=== PATIENT | female | born 1995 | race Caucasian/White ===

== ENCOUNTER 2016-10-15 22:13 | Observation (INO) | payer BC ==
[2016-10-15] MEDS ORDERED: cefTRIAXone 1,000 MG in Sodium Chloride 0.9% 50 ML IV ONE (23:44)
[2016-10-15] MEDS ORDERED: cefTRIAXone 1 GM in Premix Bag 1 BAG IV ONE (23:45)
[2016-10-15] MEDS ORDERED: Lactated Ringers 1,000 ML IV ONE (23:45)
[2016-10-16 01:32] LABS: CHLORIDE,CL 103 mmol/L (98-110); SODIUM,NA 134 mmol/L (136-146)
[2016-10-16] MEDS ORDERED: Methylergonovine 0.2 MG/1 ML Amp IM PRN (01:57)
[2016-10-16] MEDS ORDERED: Lidocaine 1% 50 ML MDV INJECT PRN (01:57)
[2016-10-16] MEDS ORDERED: Sodium Chloride 0.9% 2.5 ML Syringe FLUSH PRN ×2 (01:57→02:04)
[2016-10-16] MEDS ORDERED: Nalbuphine 10 MG/1 ML Vial IVPUSH PRN (01:57)
[2016-10-16] MEDS ORDERED: Sodium Chloride 0.9% 10 ML Syringe FLUSH PRN ×2 (01:57→02:04)
[2016-10-16] MEDS ORDERED: Carboprost Tromethamine 250 MCG/1 ML Amp IM PRN (01:57)
[2016-10-16] MEDS ORDERED: Misoprostol 200 MCG Tab PO PRN (01:57)
[2016-10-16] MEDS ORDERED: Water For Irrigation,Sterile 1,000 ML Container IRR PRN (01:57)
[2016-10-16] MEDS ORDERED: Butorphanol 1 MG/ML SDV IVPUSH PRN (01:57)
[2016-10-16] MEDS ORDERED: Lactated Ringers 1,000 ML IV SCH (02:00)
[2016-10-16] MEDS ORDERED: Oxytocin/Lactated Ringers 30 UNIT/500 ML BAG IV SCH (02:00)
[2016-10-16] MEDS ORDERED: Calcium Gluconate 10% 1 GM/10 ML SDV IV PRN (02:04)
[2016-10-16] MEDS ORDERED: Magnesium Sulfate/Water 2 GM in Premix Bag 1 BAG IV ONE (02:06)
[2016-10-16] MEDS ORDERED: MAGNESIUM SULFATE IV SCH (02:15)
[2016-10-16] MEDS ORDERED: [UNRECOGNIZED DRUG - OTHER] IV SCH (02:15)
[2016-10-16] MEDS ORDERED: Magnesium Sulfate/Water 100 ML ONE (02:15)
[2016-10-16] MEDS ORDERED: Magnesium Sulfate/Water 4 GM in Premix Bag 1 BAG IV ONE (02:20)
[2016-10-16] MEDS ORDERED: Magnesium Sulfate/Water 40 GM/1,000 ML BAG IV SCH (02:30)
[2016-10-16] MEDS ORDERED: Ampicillin 2 GM in Sodium Chloride 0.9% 100 ML IV SCH (02:30)
[2016-10-16] MEDS ORDERED: Calcium Gluconate 10% 1 GM/10 ML SDV IVPUSH ONE (02:49)
--- NOTE | 2016-10-16 04:11 | HP ---
DATE OF : 1995 PRIMARY CARE PHYSICIAN: None PCP CHIEF COMPLAINT: Right upper quadrant pain and dark urine. HISTORY: This is a 21-year-old female, G2, P1-0-0-1. She is currently 36 and 3/7th weeks' gestation with an EDC of 11/10/2016 based on an 18-week ultrasound. She has had to this point uncomplicated care. She presents with complaint of dark urine wishing to rule out a urinary tract infection. However, over the past six days, she reports right upper quadrant pain that has been worsening in intensity. Her urine has been dark. She denies any dysuria or foul odor to the urine. She denies headache or visual changes. She has swelling in her lower extremities, but not her hands and her face. She has noticed itching and red rash on her abdomen. She reports positive movement. No vaginal bleeding. No regular contractions. Her blood type is O positive, rubella immune. She is group B strep positive. Ultrasound at 18 weeks' gestation showed a low-lying placenta, however on followup ultrasound, it was resolved. She also has a short interval between conceptions. PAST MEDICAL HISTORY: Significant for pyelonephritis with her prior and pyelonephritis as a child. She has a history of mood disorder; however, has not been on any medication. ALLERGY TO MEDICATION: She has no known drug allergies. PAST SURGICAL HISTORY: She has had no surgeries. OB HISTORY: In November of 2015, she delivered a 39 and 6/7th week live-born male, 7 pounds 13 ounces, vaginal delivery without any complications. SOCIAL HISTORY: She is engaged and sexually active. Denies use of alcohol or street drugs. She does smoke occasionally. 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 FAMILY HISTORY: Significant for maternal grandmother with diabetes. REVIEW OF SYSTEMS: HEENT: Negative for headache or visual changes. RESPIRATORY: Negative for shortness of breath. CARDIAC: Negative for chest pain. MUSCULOSKELETAL: Negative for musculoskeletal pain. GI: She has reported some diarrhea in the last few days. : She denies dysuria, but reports dark urine. No vaginal bleeding or abnormal discharge. DERMATOLOGIC: She reports some generalized pruritus with a red rash on her abdomen and some sores on her buttocks area. PHYSICAL EXAMINATION: VITAL SIGNS: Temperature is 98.3, blood pressure 142/92, respiratory rate is 18. heart tones are 130s, moderate variability with accelerations present. No decelerations, category I, contractions are less than 4 per hour. GENERAL: She is alert and oriented, in no acute distress. NECK: Supple without lymphadenopathy or thyromegaly. LUNGS: Clear bilaterally. CV: Regular rate without murmur. ABDOMEN: Soft, gravid. Fundal height is appropriate for gestational age. She is slightly tender in the epigastric region and quite tender in the right upper quadrant. The liver is just palpable at the costal margin. EXTREMITIES: 1+ edema bilaterally. Deep tendon reflexes are 3+ bilaterally with no clonus. VAGINAL: 3 cm, 50%, -2 station. LABORATORY STUDIES: Attached; however, specifically, platelet count is 26,000, uric acid is 7.1, AST is 222, ALT 312, LDH is 896. She has greater than 300 mg of protein in her urine. She has positive nitrites in her urine. She has a history of being group B strep positive. Ultrasound shows growth at the 6th percentile, current weight of 5 pounds 3 ounces (2340 g), cephalic presentation, normal amniotic fluid index. ASSESSMENT AND PLAN: A 36 and 3/7th weeks intrauterine , severe preeclampsia, HELLP syndrome. Magnesium seizure prophylaxis is initiated. She has received 1 g of Rocephin due to the initial diagnosis of UTI, but now however started on ampicillin due to being group B strep positive. Due to her markedly low platelets, she needs access to platelets wherever she is delivered and I did call [facility] and spoke with Dr. Skye Cisneros. They do have some platelets available in [place] and she has accepted her in transfer. HEATHER / TATY /[id number]
--- NOTE | 2016-10-16 16:29 | US ---
EXAM DATE: 10/16/16 PATIENT'S AGE: 21 Patient: OLE JEAN-BAPTISTE Facility: [place], [place] Site . Site : 1995 Study: US OB Pelvis [id number]/10/2017 3:22:24 AM Ordering Physician: Junior Bird Final Report: INDICATION: The estimated weight TECHNIQUE: Limited obstetrical ultrasound COMPARISON: None available FINDINGS: A single live intrauterine gestation is seen in cephalic presentation. Estimated gestational age based on biparietal diameter, head circumference, abdominal circumference and femur length is 33 weeks and 6 days. There is cardiac activity with a heart rate of 141 BPM. Evaluation of anatomy is very limited. Estimated weight is 2340 grams +/-342 grams. The placenta is anterior. The cervix is not visualized. The amniotic fluid index measures 18.1 centimeters. Neither ovary is visualized. IMPRESSION.: A single live intrauterine gestation at 33 weeks 6 days by sonographic measurements. Estimated weight is 2340 grams +/-342 grams. Limited evaluation of anatomy. Dictated by Callum Kraft MD @ 10/16/2016 3:30:34 AM Dictated by: Callum Kraft MD @ 10/16/2016 03:30:40 (Electronic Signature) Report Signed by Proxy. ELISSA
== END 2016-10-16 03:51 ==
LOC: MW.OBCHECK 22:13 → MW.OB 22:19 → MW.OBCHECK 10-16 01:57 → MW.OB 10-16 01:57
PROVIDERS: ADMIT Obstetrics & Gynecology; ATTEND Obstetrics & Gynecology
DX: O14.23 HELLP syndrome (HELLP), third trimester (principal); O23.43 Unspecified infection of urinary tract in pregnancy, third trimester; B95.1 Streptococcus, group B, as the cause of diseases classified elsewhere; Z3A.36 36 weeks gestation of pregnancy
CPT/HCPCS: 36415; 59025; 76805; 80053; 81003; 83615; 84550; 85025; 86850; 86900; 86901; 87086; 96374; 96375; G0378; J0290; J0696; J3475; J7030; J7120; 96372

== ENCOUNTER 2018-01-31 21:55 | Emergency (ER) | payer BC ==
--- NOTE | 2018-01-31 22:29 | EDM.PDOC ---
ED HPI GENERAL MEDICAL PROBLEM - General Chief Complaint: Back Pain or Injury Stated Complaint: PAIN WHEN URINATING Time Seen by Provider: 01/31/18 22:25 - History of Present Illness INITIAL COMMENTS - FREE TEXT/NARRATIVE: HISTORY AND PHYSICAL: History of present illness: Patient's 22-year-old white female with a concern of low back pain and possible UTI patient denies fever chills nausea vomiting numbness weakness in concert potential bowel or bladder vaginal discharge or irregular bleeding. Review of systems: As per history of present illness and below otherwise all systems reviewed and negative. Past medical history: As per history of present illness and as reviewed below otherwise noncontributory. Surgical history: As per history of present illness and as reviewed below otherwise noncontributory. Social history: No reported history of drug or alcohol abuse. Family history: As per history of present illness and as reviewed below otherwise noncontributory. Physical exam: HEENT: Atraumatic, normocephalic, pupils reactive, negative for conjunctival pallor or scleral icterus, mucous membranes moist, throat clear, neck supple, nontender, trachea midline. Lungs: Clear to auscultation, breath sounds equal bilaterally, chest nontender. Heart: S1S2, regular, negative for clicks, rubs, or JVD. Abdomen: Soft, nondistended, nontender. Negative for masses or hepatosplenomegaly. Negative for costovertebral tenderness. Pelvis: Stable nontender. Genitourinary: Deferred. Rectal: Deferred. Extremities: Atraumatic, negative for cords or calf pain. Neurovascular unremarkable. Neuro: Awake, alert, oriented. Cranial nerves II through XII unremarkable. Cerebellum unremarkable. Motor and sensory unremarkable throughout. Exam nonfocal. Back: Patient has some mild paravertebral tenderness at the level lumbar spine no vertebral body point tenderness patients able stand on her toes back on her heels motor sensory deep tendon reflexes are normal Diagnostics: UA UCG urine culture and sensitivity Therapeutics: None Impression: #1 low back pain Definitive disposition and diagnosis as appropriate pending reevaluation and review of above. 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 ED EXAM, GENERAL - Physical Exam Exam: See Below (The dictation) Course - Vital Signs Last Recorded V/S: Last Vital Signs Temp 36.4 C 01/31/18 21:55 Pulse 75 01/31/18 21:55 Resp 18 01/31/18 21:55 BP 126/67 01/31/18 21:55 Pulse Ox 98 01/31/18 21:55 - Orders/Labs/Meds Orders: Active Orders 24 hr Category Date Time Status CULTURE URINE [RM] Stat Lab 01/31/18 22:29 Ordered HCG QUALITATIVE,URINE [URCHEM] Stat Lab 01/31/18 22:10 Ordered UA W/MICROSCOPIC [URIN] Stat Lab 01/31/18 22:10 Ordered Labs: Laboratory Tests 01/31/18 01/31/18 Range/Units 22:10 22:10 Urine Color YELLOW Urine Appearance SLT CLOUDY Urine pH 6.5 (5.0-8.0) Ur Specific [place] 1.025 (1.001-1.035) Urine Protein NEGATIVE (NEGATIVE) mg/dL Urine Glucose (UA) NEGATIVE (NEGATIVE) mg/dL Urine Ketones NEGATIVE (NEGATIVE) mg/dL Urine Occult Blood NEGATIVE (NEGATIVE) Urine Nitrite NEGATIVE (NEGATIVE) Urine Bilirubin NEGATIVE (NEGATIVE) Urine Urobilinogen 0.2 (<2.0) EU/dL Ur Leukocyte Esterase TRACE (NEGATIVE) Urine RBC 1-3 (0-2/HPF) Urine WBC 6-10 (0-5/HPF) Ur Epithelial Cells FEW (NONE-FEW) Amorphous Sediment MODERATE (NEGATIVE) Urine Bacteria FEW (NEGATIVE) Urine HCG, Qual NEGATIVE (NEGATIVE) Departure - Departure Time of Disposition: 22:28 Disposition: Home, Self-Care 01 Condition: Good Clinical Impression: Encounter for medical screening examination, Back pain, UTI (urinary tract infection) - Discharge Information *PRESCRIPTION DRUG MONITORING PROGRAM REVIEWED*: Not Applicable *COPY OF PRESCRIPTION DRUG MONITORING REPORT IN PATIENT MARK: Not Applicable Instructions: Back Pain, Adult Referrals: Trell Harper MD [Primary Care Provider] - Forms: ED Department Discharge Additional Instructions: The following information is given to patients seen in the emergency department who are being discharged to home. This information is to outline your options for follow-up care. We provide all patients seen in our emergency department with a follow-up referral. The need for follow-up, as well as the timing and circumstances, are variable depending upon the specifics of your emergency department visit. If you don't have a primary care physician on staff, we will provide you with a referral. We always advise you to contact your personal physician following an emergency department visit to inform them of the circumstance of the visit and for follow-up with them and/or the need for any referrals to a consulting specialist. The emergency department will also refer you to a specialist when appropriate. This referral assures that you have the opportunity for followup care with a specialist. All of these measure are taken in an effort to provide you with optimal care, which includes your followup. Under all circumstances we always encourage you to contact your private physician who remains a resource for coordinating your care. When calling for followup care, please make the office aware that this follow-up is from your recent emergency room visit. If for any reason you are refused follow-up, please contact the emergency department at and asked to speak to the emergency department charge nurse. Cipro as prescribed push fluids follow primary medical doctor as needed as discussed return as needed as discussed - My Orders Last 24 Hours: My Active Orders 01/31/18 22:10 HCG QUALITATIVE,URINE [URCHEM] Stat UA W/MICROSCOPIC [URIN] Stat 01/31/18 22:29 CULTURE URINE [RM] Stat - Assessment/Plan Last 24 Hours: My Active Orders 01/31/18 22:10 HCG QUALITATIVE,URINE [URCHEM] Stat UA W/MICROSCOPIC [URIN] Stat 01/31/18 22:29 CULTURE URINE [RM] Stat
[2018-01-31 22:38] VITALS: BP 126/67
== END 2018-01-31 23:26 | disposition home or self-care (01) ==
LOC: MW.ED 21:55
DX: N39.0 Urinary tract infection, site not specified (principal); M54.5 Low back pain
CPT/HCPCS: 81001; 81025; 87086; 99283

== ENCOUNTER 2018-09-21 17:32 | Emergency (ER) | payer BC ==
--- NOTE | 2018-09-21 17:46 | EDM.PDOC ---
ED HPI GENERAL MEDICAL PROBLEM - General Stated Complaint: UTI AND COUGH Time Seen by Provider: 09/21/18 17:46 Source of Information: Reports: Patient History Limitations: Reports: No Limitations - History of Present Illness INITIAL COMMENTS - FREE TEXT/NARRATIVE: HISTORY AND PHYSICAL: History of present illness: Patient is a 23-year-old female who presents to the emergency room today with complaints of bilateral flank pain, suprapubic discomfort and dysuria at the end of urination. She states these symptoms have been dull but noticeable over the past 4 weeks. Patient denies any fever, chills, headache, change in vision, syncope or near syncope. Denies any chest pain, back pain, shortness of breath or cough. Denies any abdominal pain, nausea, vomiting, diarrhea, constipation. Has not noted any blood in urine or stool. Denies any chance of . Patient has been eating and drinking appropriately. Review of systems: As per history of present illness and below otherwise all systems reviewed and negative. Past medical history: As per history of present illness and as reviewed below otherwise noncontributory. Surgical history: As per history of present illness and as reviewed below otherwise noncontributory. Social history: See social history for further information Family history: As per history of present illness and as reviewed below otherwise noncontributory. Physical exam: General: Well-developed and well-nourished 23-year-old female. Alert and oriented. Nontoxic appearing and in no acute distress. HEENT: Atraumatic, normocephalic, pupils equal and reactive bilaterally, negative for conjunctival pallor or scleral icterus, mucous membranes moist, TMs normal bilaterally, throat clear, neck supple, nontender, trachea midline. No drooling or trismus noted. No meningeal signs. No hot potato voice noted. Lungs: Clear to auscultation, breath sounds equal bilaterally, chest nontender. Heart: S1S2, regular rate and rhythm without overt murmur Abdomen: Soft, nondistended, nontender. Negative for masses or hepatosplenomegaly. Negative for costovertebral tenderness. Pelvis: Stable, mild suprapubic tenderness with palpation. Genitourinary: Deferred. Rectal: Deferred. Skin: Intact, warm, dry. No lesions or rashes noted. Extremities: Atraumatic, moves all extremities per self with difficulty or deficits, negative for cords or calf pain. Neurovascular unremarkable. Neuro: Awake, alert, oriented. Cranial nerves II through XII unremarkable. Cerebellum unremarkable. Motor and sensory unremarkable throughout. Exam nonfocal. Notes: Patient does have a urinary tract infection. We'll place her on Macrobid a culture is pending. Chest x-ray shows no acute findings. We'll give her pro-air inhaler for symptomatic relief. Encouraged her to follow up with her primary care provider. Supportive care measures were reviewed and discussed. Voices understanding and is agreeable to plan of care. Denies any further questions or concerns at this time. Diagnostics: UA, HCGU, CXR Therapeutics: None Prescription: Macrobid Pro-air Impression: UTI Bronchitis Plan: 1. Take your antibiotic as prescribed. 2. Increase your oral fluids. 3. Follow-up with your primary care provider as we discussed. Return to the ED as needed and as discussed. Definitive disposition and diagnosis as appropriate pending reevaluation and review of above. 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 ED EXAM, RENAL/ - Physical Exam Exam: See Below (See dictation) Course - Vital Signs Last Recorded V/S: Last Vital Signs Temp 97.8 F 09/21/18 17:51 Pulse 85 09/21/18 17:51 Resp 18 09/21/18 17:51 BP 136/74 09/21/18 17:51 Pulse Ox 98 09/21/18 17:51 - Orders/Labs/Meds Orders: Active Orders 24 hr Category Date Time Status Chest 2V [CR] Stat Exams 09/21/18 17:42 Taken UA RFX ERIBERTO AND CULT IF INDIC [URIN] Stat Lab 09/21/18 18:29 Received Labs: Laboratory Tests 09/21/18 09/21/18 Range/Units 18:29 18:29 Urine Color YELLOW Urine Appearance CLEAR Urine pH 6.5 (5.0-8.0) Ur Specific [place] 1.010 (1.001-1.035) Urine Protein NEGATIVE (NEGATIVE) mg/dL Urine Glucose (UA) NEGATIVE (NEGATIVE) mg/dL Urine Ketones NEGATIVE (NEGATIVE) mg/dL Urine Occult Blood MODERATE H (NEGATIVE) Urine Nitrite NEGATIVE (NEGATIVE) Urine Bilirubin NEGATIVE (NEGATIVE) Urine Urobilinogen 0.2 (<2.0) EU/dL Ur Leukocyte Esterase LARGE H (NEGATIVE) Urine RBC 3-5 (0-2/HPF) Urine WBC 15-20 (0-5/HPF) Ur Epithelial Cells FEW (NONE-FEW) Urine Bacteria FEW (NEGATIVE) Urine HCG, Qual NEGATIVE (NEGATIVE) Departure - Departure Time of Disposition: 19:26 Disposition: Home, Self-Care 01 Clinical Impression: UTI, Urinary tract infectious disease, Bronchitis - Discharge Information Prescriptions: Albuterol Sulfate [Proair Hfa] 1 dose IH Q4HR #1 hfa.aer.ad Nitrofurantoin Weld/Macrocryst [Nitrofurantoin Weld-MCR] 100 mg PO BID 7 Days # 14 cap Instructions: Urinary Tract Infection, Adult, [id number] Referrals: Trell Harper MD [Primary Care Provider] - Additional Instructions: The following information is given to patients seen in the emergency department who are being discharged to home. This information is to outline your options for follow-up care. We provide all patients seen in our emergency department with a follow-up referral. The need for follow-up, as well as the timing and circumstances, are variable depending upon the specifics of your emergency department visit. If you don't have a primary care physician on staff, we will provide you with a referral. We always advise you to contact your personal physician following an emergency department visit to inform them of the circumstance of the visit and for follow-up with them and/or the need for any referrals to a consulting specialist. The emergency department will also refer you to a specialist when appropriate. This referral assures that you have the opportunity for follow-up care with a specialist. All of these measure are taken in an effort to provide you with optimal care, which includes your follow-up. Under all circumstances we always encourage you to contact your private physician who remains a resource for coordinating your care. When calling for follow-up care, please make the office aware that this follow-up is from your recent emergency room visit. If for any reason you are refused follow-up, please contact the [facility] Emergency Department at and asked to speak to the emergency department charge nurse. [facility] [address] [place] [id number] [place] [address] 1. Take your antibiotic as prescribed. 2. Increase your oral fluids. 3. Follow-up with your primary care provider as we discussed. Return to the ED as needed and as discussed. - My Orders Last 24 Hours: My Active Orders 09/21/18 17:42 Chest 2V [CR] Stat 09/21/18 18:29 UA RFX ERIBERTO AND CULT IF INDIC [URIN] Stat - Assessment/Plan Last 24 Hours: My Active Orders 09/21/18 17:42 Chest 2V [CR] Stat 09/21/18 18:29 UA RFX ERIBERTO AND CULT IF INDIC [URIN] Stat
[2018-09-21 19:34] VITALS: BP 105/75
--- NOTE | 2018-09-21 19:48 | CR ---
INDICATION: cough TECHNIQUE: Chest 2 views. COMPARISON: None. FINDINGS: Cardiovascular and mediastinum: Heart size and vasculature are normal in caliber and appearance. Mediastinum is within normal limits. Lungs and pleural spaces: Lungs are clear. No sign of infiltrate or mass. No sign of pleural effusion. No pneumothorax. Bones and soft tissues: No significant findings. IMPRESSION: Unremarkable chest. Dictated by: Blair Mueller MD @ 09/21/2018 19:47:16 (Electronically Signed)
== END 2018-09-21 19:33 | disposition home or self-care (01) ==
LOC: MW.ED 17:32
DX: N39.0 Urinary tract infection, site not specified (principal); J40 Bronchitis, not specified as acute or chronic; F41.9 Anxiety disorder, unspecified; F32.9 Major depressive disorder, single episode, unspecified; Z79.899 Other long term (current) drug therapy
CPT/HCPCS: 71046; 71046-26; 81001; 81025; 87086; 87088; 87186; 99283; 99284-25

== ENCOUNTER 2018-12-18 20:51 | Emergency (ER) | payer BC ==
[2018-12-18] MEDS ORDERED: Sodium Chloride 0.9% 1,000 ML IV ONE (20:57)
[2018-12-18] MEDS ORDERED: Ketorolac 30 MG/ML SDV IVPUSH ONE (21:08)
--- NOTE | 2018-12-18 21:08 | EDM.PDOC ---
ED HPI GENERAL MEDICAL PROBLEM - General Chief Complaint: Abdominal Pain Stated Complaint: GALLBLADDER PAIN Time Seen by Provider: 12/18/18 20:53 Source of Information: Reports: Patient History Limitations: Reports: No Limitations - History of Present Illness INITIAL COMMENTS - FREE TEXT/NARRATIVE: HISTORY AND PHYSICAL: History of present illness: Patient is a 23-year-old female who presents to the emergency room complaints of abdominal pain over the past 4-5 hours. She states last evening she had eaten some [employer] did have some slight abdominal upset and pain to her upper abdomen. States this resolved after a few hours. This afternoon she had some greasy food at approximately one hour afterward developed some epigastric/ upper abdominal pain. She describes this as an achy and intermittently sharp pain. Denies any nausea, vomiting or diarrhea. She is concerned that it is her gallbladder and she has had similar episodes in the past, associated with food. She states that she has had evaluation for this including lab work and ultrasound. She states that her gallbladder is "normal". Patient denies any fever, chills, headache, change in vision, syncope or near syncope. Denies any chest pain, back pain, shortness of breath or cough. Denies any nausea, vomiting, diarrhea, constipation or dysuria. Has not noted any blood in urine or stool. Patient has been eating and drinking appropriately. Review of systems: As per history of present illness and below otherwise all systems reviewed and negative. Past medical history: As per history of present illness and as reviewed below otherwise noncontributory. Surgical history: As per history of present illness and as reviewed below otherwise noncontributory. Social history: See social history for further information Family history: As per history of present illness and as reviewed below otherwise noncontributory. Physical exam: General: Well-developed and well-nourished 23-year-old female. Alert and oriented. Nontoxic appearing and in no acute distress. HEENT: Atraumatic, normocephalic, pupils equal and reactive bilaterally, negative for conjunctival pallor or scleral icterus, mucous membranes moist, trachea midline. No drooling or trismus noted. No meningeal signs. No hot potato voice noted. Lungs: Clear to auscultation, breath sounds equal bilaterally, chest nontender. Heart: S1S2, regular rate and rhythm without overt murmur Abdomen: Soft, nondistended, mild tenderness to the epigastric area Negative for masses or hepatosplenomegaly. Negative for costovertebral tenderness. Pelvis: Stable nontender. Genitourinary: Deferred. Rectal: Deferred. Skin: Intact, warm, dry. No lesions or rashes noted. Extremities: Atraumatic, moves all extremities per self without difficulty or deficits, negative for cords or calf pain. Neurovascular unremarkable. Neuro: Awake, alert, oriented. Cranial nerves II through XII unremarkable. Cerebellum unremarkable. Motor and sensory unremarkable throughout. Exam nonfocal. Notes: Lab work is unremarkable. Vital signs remained stable. X-ray shows no acute findings. Diagnostics were shared with the patient. Supportive care measures were reviewed and discussed. Voices understanding and is agreeable to plan of care. Denies any further questions or concerns at this time. Diagnostics: CBC, CMP, UA, urine , lipase Therapeutics: IV fluid, Toradol Prescription: Tramadol Impression: Abdominal pain, upper Plan: 1. Please use Tylenol and/or Ibuprofen as needed for pain and fever management. 2. Please continue to monitor your foods and possibly keep a food diary to see if there are any triggers that are causing her abdominal pain. 3. Encourage fluids to prevent dehydration. 4. Please follow up with your primary care provider. Return to the ED as needed as discussed. Definitive disposition and diagnosis as appropriate pending reevaluation and review of above. Abdomen Pain Score (Numeric/FACES): 5 - Related Data Allergies Allergy/AdvReac Type Severity Reaction Status Date / Time No Known Allergies Allergy Verified 12/18/18 21:01 Home Meds: Home Meds Albuterol Sulfate [Proair Hfa] 1 dose IH Q4HR #1 [email or web address] 09/21/18 [Rx] Citalopram Hydrobromide [Celexa] 40 mg PO DAILY 09/21/18 [History] Nitrofurantoin [place]/Macrocryst [Nitrofurantoin [place]-MCR] 100 mg PO BID 7 Days # 14 cap 09/21/18 [Rx] Past Medical History - Past Health History Medical/Surgical History: Denies Medical/Surgical History Genitourinary 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: Pyelonephritis [employer]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 ED EXAM, GI/ABD - Physical Exam Exam: See Below (See dictation) Course - Vital Signs Last Recorded V/S: Last Vital Signs Temp 96.7 F 12/18/18 22:52 Pulse 61 12/18/18 22:52 Resp 16 12/18/18 22:52 BP 104/71 12/18/18 22:52 Pulse Ox 99 12/18/18 22:52 - Orders/Labs/Meds Labs: Laboratory Tests 12/18/18 12/18/18 12/18/18 Range/Units 21:16 21:16 21:24 WBC 10.21 (4.0-11.0) K/uL RBC 4.49 (4.30-5.90) M/uL Hgb 13.2 (12.0-16.0) g/dL Hct 40.1 (36.0-46.0) % MCV 89.3 (80.0-98.0) fL MCH 29.4 (27.0-32.0) pg MCHC 32.9 (31.0-37.0) g/dL RDW Std Deviation 48.1 (28.0-62.0) fl RDW Coeff of Griselda 15 (11.0-15.0) % Plt Count 201 (150-400) K/uL MPV 10.60 (7.40-12.00) fL Neut % (Auto) 58.7 (48.0-80.0) % Lymph % (Auto) 31.0 (16.0-40.0) % [place] % (Auto) 6.4 (0.0-15.0) % Eos % (Auto) 3.4 (0.0-7.0) % Baso % (Auto) 0.5 (0.0-1.5) % Neut # (Auto) 6.0 H (1.4-5.7) K/uL Lymph # (Auto) 3.2 H (0.6-2.4) K/uL [place] # (Auto) 0.7 (0.0-0.8) K/uL Eos # (Auto) 0.4 (0.0-0.7) K/uL Baso # (Auto) 0.1 (0.0-0.1) K/uL Nucleated RBC % 0.0 /100WBC Nucleated RBCs # 0 K/uL Sodium (136-145) mmol/L Potassium (3.5-5.1) mmol/L Chloride (98-107) mmol/L Carbon Dioxide (21.0-32.0) mmol/L BUN (7.0-18.0) mg/dL Creatinine (0.6-1.0) mg/dL Est Cr Clr Drug Dosing mL/min Estimated GFR (MDRD) ml/min Glucose (74-106) mg/dL Calcium (8.5-10.1) mg/dL Total Bilirubin (0.2-1.0) mg/dL AST (15-37) IU/L ALT (14-63) IU/L Alkaline Phosphatase (46-116) U/L Total Protein (6.4-8.2) g/dL Albumin (3.4-5.0) g/dL Globulin (2.6-4.0) g/dL Albumin/Globulin Ratio (0.9-1.6) Lipase (73-393) U/L Urine Color YELLOW Urine Appearance CLEAR Urine pH 6.0 (5.0-8.0) Ur Specific [place] 1.020 (1.001-1.035) Urine Protein NEGATIVE (NEGATIVE) mg/dL Urine Glucose (UA) NEGATIVE (NEGATIVE) mg/dL Urine Ketones NEGATIVE (NEGATIVE) mg/dL Urine Occult Blood NEGATIVE (NEGATIVE) Urine Nitrite NEGATIVE (NEGATIVE) Urine Bilirubin NEGATIVE (NEGATIVE) Urine Urobilinogen 0.2 (<2.0) EU/dL Ur Leukocyte Esterase NEGATIVE (NEGATIVE) Urine HCG, Qual NEGATIVE (NEGATIVE) 12/18/18 Range/Units 21:24 WBC (4.0-11.0) K/uL RBC (4.30-5.90) M/uL Hgb (12.0-16.0) g/dL Hct (36.0-46.0) % MCV (80.0-98.0) fL MCH (27.0-32.0) pg MCHC (31.0-37.0) g/dL RDW Std Deviation (28.0-62.0) fl RDW Coeff of Griselda (11.0-15.0) % Plt Count (150-400) K/uL MPV (7.40-12.00) fL Neut % (Auto) (48.0-80.0) % Lymph % (Auto) (16.0-40.0) % [place] % (Auto) (0.0-15.0) % Eos % (Auto) (0.0-7.0) % Baso % (Auto) (0.0-1.5) % Neut # (Auto) (1.4-5.7) K/uL Lymph # (Auto) (0.6-2.4) K/uL [place] # (Auto) (0.0-0.8) K/uL Eos # (Auto) (0.0-0.7) K/uL Baso # (Auto) (0.0-0.1) K/uL Nucleated RBC % /100WBC Nucleated RBCs # K/uL Sodium 143 (136-145) mmol/L Potassium 4.0 (3.5-5.1) mmol/L Chloride 108 H (98-107) mmol/L Carbon Dioxide 25.9 (21.0-32.0) mmol/L BUN 11 (7.0-18.0) mg/dL Creatinine 0.7 (0.6-1.0) mg/dL Est Cr Clr Drug Dosing 102.51 mL/min Estimated GFR (MDRD) > 60.0 ml/min Glucose 86 (74-106) mg/dL Calcium 8.8 (8.5-10.1) mg/dL Total Bilirubin 0.2 (0.2-1.0) mg/dL AST 17 (15-37) IU/L ALT 28 (14-63) IU/L Alkaline Phosphatase 60 (46-116) U/L Total Protein 7.3 (6.4-8.2) g/dL Albumin 3.8 (3.4-5.0) g/dL Globulin 3.5 (2.6-4.0) g/dL Albumin/Globulin Ratio 1.1 (0.9-1.6) Lipase 96 (73-393) U/L Urine Color Urine Appearance Urine pH (5.0-8.0) Ur Specific [place] (1.001-1.035) Urine Protein (NEGATIVE) mg/dL Urine Glucose (UA) (NEGATIVE) mg/dL Urine Ketones (NEGATIVE) mg/dL Urine Occult Blood (NEGATIVE) Urine Nitrite (NEGATIVE) Urine Bilirubin (NEGATIVE) Urine Urobilinogen (<2.0) EU/dL Ur Leukocyte Esterase (NEGATIVE) Urine HCG, Qual (NEGATIVE) Meds: Medications Discontinued Medications Generic Name Dose Route Start Last Admin Trade Name Gurmeetq PRN Reason Stop Dose Admin Sodium Chloride 1,000 mls @ 999 mls/hr 12/18/18 20:57 12/18/18 21:30 Normal Saline IV 12/18/18 21:57 999 mls/hr STAT ONE Administration Ketorolac Tromethamine 30 mg 12/18/18 21:08 12/18/18 22:09 Toradol IVPUSH 12/18/18 21:09 Not Given ONETIME ONE Departure - Departure Time of Disposition: 23:27 Disposition: Home, Self-Care 01 Clinical Impression: Abdominal pain Qualifiers: Abdominal location: upper abdomen, unspecified Qualified Code(s): R10.10 - Upper abdominal pain, unspecified - Discharge Information Instructions: Abdominal Pain, Adult, [id number] Referrals: Trell Harper MD [Primary Care Provider] - Forms: ED Department Discharge Additional Instructions: The following information is given to patients seen in the emergency department who are being discharged to home. This information is to outline your options for follow-up care. We provide all patients seen in our emergency department with a follow-up referral. The need for follow-up, as well as the timing and circumstances, are variable depending upon the specifics of your emergency department visit. If you don't have a primary care physician on staff, we will provide you with a referral. We always advise you to contact your personal physician following an emergency department visit to inform them of the circumstance of the visit and for follow-up with them and/or the need for any referrals to a consulting specialist. The emergency department will also refer you to a specialist when appropriate. This referral assures that you have the opportunity for follow-up care with a specialist. All of these measure are taken in an effort to provide you with optimal care, which includes your follow-up. Under all circumstances we always encourage you to contact your private physician who remains a resource for coordinating your care. When calling for follow-up care, please make the office aware that this follow-up is from your recent emergency room visit. If for any reason you are refused follow-up, please contact the [facility] Emergency Department at and asked to speak to the emergency department charge nurse. [facility] [address] [place] [address] [address] 1. Please use Tylenol and/or Ibuprofen as needed for pain and fever management. 2. Please continue to monitor your foods and possibly keep a food diary to see if there are any triggers that are causing her abdominal pain. 3. Encourage fluids to prevent dehydration. 4. Please follow up with your primary care provider. Return to the ED as needed as discussed.
[2018-12-18 22:02] LABS: CHLORIDE,CL 108 mmol/L (98-107); SODIUM,NA 143 mmol/L (136-145)
--- NOTE | 2018-12-18 23:14 | CR ---
INDICATION: Abdominal pain TECHNIQUE: Chest and Abdominal radiograph 6 views COMPARISON: None FINDINGS: Moderate degradation of image quality noted due to body habitus. CHEST: Mediastinum: The mediastinum is normal in appearance. The heart silhouette is normal in size and morphology. Lung: Both lungs are unremarkable in appearance. No sign of pleural effusion seen. No pneumothorax is identified. ABDOMEN: Bowel: The bowel gas pattern is normal without evidence of bowel obstruction. Soft tissue: No evidence of pneumoperitoneum present. No suspicious calcifications noted. Bone: Unremarkable for age. IMPRESSION: 1. Unremarkable appearance of the chest and abdomen. Dictated by: Ramon Littlejohn MD @ 12/18/2018 23:13:58 (Electronically Signed)
[2018-12-18 23:43] VITALS: BP 121/76
== END 2018-12-18 23:40 | disposition home or self-care (01) ==
LOC: MW.ED 20:51
DX: R10.13 Epigastric pain (principal); F41.9 Anxiety disorder, unspecified; F32.9 Major depressive disorder, single episode, unspecified; Z79.899 Other long term (current) drug therapy
CPT/HCPCS: 74022; 80053; 81003; 81025; 83690; 85025; 96360; 99284; J7040; 99283

== ENCOUNTER 2019-09-05 02:07 | Emergency (ER) | payer BC ==
[2019-09-05] MEDS ORDERED: Ibuprofen 600 MG Tab PO ONE (02:36)
--- NOTE | 2019-09-05 03:05 | EDM.PDOC ---
ED [facility] GENERAL MEDICAL PROBLEM - General Chief Complaint: General Stated Complaint: RIB PAIN Time Seen by Provider: 09/05/19 02:35 Source of Information: Reports: Patient History Limitations: Reports: No Limitations - History of Present Illness INITIAL COMMENTS - FREE TEXT/NARRATIVE: Patient is a 24-year-old female with past medical history of help syndrome 3 years ago. Patient reports chief complaint of bilateral lower rib pain. Onset was while the patient was at a bonfire earlier this evening. Patient reports acute onset of pain. Pain is not improved at all. Nothing makes pain better or worse. Patient not take any medications prior to arrival. Patient reports that she did have a few drinks of alcohol. Patient denies any recent illnesses , fevers, chills, shortness of breath, sore throat. Patient has no prior history of recent travel no history of DVT or PE and is not currently take any oral contraceptives. Pmhx: Help syndrome Pshx: None Family Hx: noncontributory Smoking history? no Etoh use? none Drug use? none In addition to that documented in the HPI above, the additional ROS was obtained : Constitutional: Denies fevers or chills Eyes: Denies vision changes ENMT: Denies sore throat CV: Denies chest pain Resp: Denies SOB GI: Denies vomiting or diarrhea : Denies painful urination MSK: Denies recent trauma Skin: Denies new rashes Neuro: Denies new numbness or tingling or weakness Endocrine: Denies unexpected weight loss Heme: Denies bleeding disorders I have reviewed the triage vital signs Const: Well nourished, well developed, appears stated age Eyes: PERRL, no conjunctival injection HENT: NCAT, Neck supple without meningismus CV: RRR, Warm, well-perfused extremities RESP: CTAB, Unlabored respiratory effort GI: soft, non-tender, non-distended, no masses MSK: No gross deformities appreciated Skin: Warm, dry. No rashes Neuro: Alert, sql ssrs developer II-XII grossly intact. Sensation and motor function of extremities grossly intact. Psych: Appropriate mood and affect Assessment and plan: Patient is 24-year-old female presenting with acute onset of chest pain. Patient has normal EKG and normal x-ray. Differential including acute coronary syndrome and PE were considered however they seem unlikely. Patient is PERC negative and has no major ACS risk factors. Patient's chest pain improved after administration of Motrin. Patient is vitally stable and is well- appearing. Patient will be discharged home and instructed to follow-up with primary care. Given strict return precautions. All questions addressed and answered. Patient agrees with plan. 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: Musculoskeletal 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: None Neurological 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: None Psychiatric 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: Anxiety, Depression Endocrine/Metabolic 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: None Hematologic 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: None Oncologic (Cancer) 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: None Dermatologic 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: None - Infectious Disease History Infectious Disease 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: None - Past Surgical History Head Surgeries/Procedures: Reports: None GI Surgical 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: Cholecystectomy Female Surgical 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: None Social & Family History - Family History Family Medical History: Noncontributory - Tobacco Use Smoking Status *Q: Current Every Day Smoker Years of Tobacco use: 10 Packs/Tins Daily: 1 - Caffeine Use Caffeine Use: Reports: Coffee, Energy Drinks - Recreational Drug Use Recreational Drug Use: No ED ROS GENERAL - Review of Systems Review Of Systems: See Below ED EXAM, GENERAL - Physical Exam Exam: See Below Course - Vital Signs Last Recorded V/S: Last Vital Signs Temp 36.2 C 09/05/19 02:11 Pulse 90 09/05/19 02:11 Resp 18 09/05/19 02:11 BP 123/64 09/05/19 02:11 Pulse Ox 98 09/05/19 02:11 - Orders/Labs/Meds Orders: Active Orders 24 hr Category Date Time Status EKG Documentation Completion [RC] STAT Care 09/05/19 02:51 Active Chest 2V [CR] Stat Exams 09/05/19 02:36 Taken Labs: Laboratory Tests 09/05/19 Range/Units 02:40 Urine HCG, Qual NEGATIVE (NEGATIVE) Meds: Medications Discontinued Medications Generic Name Dose Route Start Last Admin Trade Name Sun PRN Reason Stop Dose Admin Ibuprofen 600 mg 09/05/19 02:36 09/05/19 02:45 Motrin PO 09/05/19 02:37 600 mg ONETIME ONE Administration Departure - Departure Time of Disposition: 03:30 Disposition: Home, Self-Care 01 Clinical Impression: Atypical chest pain - Discharge Information Instructions: Nonspecific Chest Pain, Adult Referrals: Trell Harper MD [Primary Care Provider] - Forms: ED Department Discharge Sepsis Event Note - Evaluation Sepsis Screening Result: No Definite Risk - Focused Exam Vital Signs: Vital Signs Temp Pulse Resp BP Pulse Ox 09/05/19 02:11 36.2 C 90 18 123/64 98 Date Exam was Performed: 09/05/19 Time Exam was Performed: 03:30 - My Orders Last 24 Hours: My Active Orders 09/05/19 02:36 Chest 2V [CR] Stat 09/05/19 02:51 EKG Documentation Completion [RC] STAT - Assessment/Plan Last 24 Hours: My Active Orders 09/05/19 02:36 Chest 2V [CR] Stat 09/05/19 02:51 EKG Documentation Completion [RC] STAT
--- NOTE | 2019-09-05 03:32 | CR ---
Indication: Bilateral lower rib pain Technique: Chest 2 views Comparison: 09/21/2018 Findings/Impression: Cardiovascular and mediastinum: Stable cardiomediastinal silhouette. An ovoid opacity in the left hilum again seen, presumably representing a central pulmonary vessel. Lungs and pleural spaces: Lungs are clear. No sign of infiltrate or mass. No sign of pleural effusion. No pneumothorax. Bones and soft tissues: Cholecystectomy clips. Stable osseous structures. Dictated by Callum Kraft MD @ 09/05/2019 3:30:56 AM Dictated by: Callum Kraft MD @ 09/05/2019 03:31:00 (Electronically Signed)
[2019-09-05 03:56] VITALS: BP 111/69; PULSE 80
== END 2019-09-05 03:35 | disposition home or self-care (01) ==
LOC: MW.ED 02:07
DX: R07.89 Other chest pain (principal); F41.9 Anxiety disorder, unspecified; F32.9 Major depressive disorder, single episode, unspecified; F17.210 Nicotine dependence, cigarettes, uncomplicated; Z79.899 Other long term (current) drug therapy
CPT/HCPCS: 71046; 81025; 93005; 99285; A9270; 99284

== ENCOUNTER 2020-07-13 23:14 | Emergency (ER) | payer BC ==
[2020-07-13] MEDS ORDERED: methylPREDNISolone Sodium Succinate 125 MG/2 ML SDV IVPUSH ONE (23:18)
[2020-07-13] MEDS ORDERED: Famotidine 20 MG/2 ML SDV IVPUSH ONE (23:18)
[2020-07-13] MEDS ORDERED: Ondansetron 4 MG/2 ML SDV ONE (23:27)
[2020-07-13] MEDS ORDERED: diphenhydrAMINE 50 MG/ML SDV ONE (23:27)
[2020-07-13] MEDS ORDERED: Ondansetron 4 MG/2 ML SDV IVPUSH ONE (23:31)
[2020-07-13] MEDS ORDERED: Sodium Chloride 0.9% 1,000 ML IV STA (23:37)
[2020-07-13] MEDS ORDERED: diphenhydrAMINE 50 MG/ML SDV IVPUSH ONE (23:39)
--- NOTE | 2020-07-14 00:06 | EDM.PDOC ---
ED HPI GENERAL MEDICAL PROBLEM - General Chief Complaint: Allergic Reaction Stated Complaint: ALLERGIC REACTION Time Seen by Provider: 07/14/20 00:02 Source of Information: Reports: Patient History Limitations: Reports: No Limitations - History of Present Illness INITIAL COMMENTS - FREE TEXT/NARRATIVE: Is a 25-year-old female who presents today for possible allergic reaction. Patient dates that she had a cauliflower pizza when she developed some lip swelling and further itchiness over her whole body. Patient took some Benadryl at home with not much relief. Patient here denies any shortness of breath throat tightness cough or rash. Treatments MONITOR TECHNICIAN: Reports: Acetaminophen Other Treatments MONITOR TECHNICIAN: benadryl - Related Data Allergies Allergy/AdvReac Type Severity Reaction Status Date / Time No Known Allergies Allergy Verified 07/13/20 23:23 Home Meds: Home Meds Citalopram Hydrobromide [Celexa] 40 mg PO DAILY 09/21/18 [History] EPINEPHrine [Epipen] 0.3 mg IM ASDIRECTED PRN 1 Days #1 pen 07/14/20 [Rx] predniSONE [Prednisone] 50 mg PO DAILY 5 Days #5 tablet 07/14/20 [Rx] Past Medical History - Past Health History Medical/Surgical History: Denies Medical/Surgical History HEENT 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: None Cardiovascular 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: None Respiratory 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: None Gastrointestinal 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: None Genitourinary 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: Pyelonephritis 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: Musculoskeletal 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: None Neurological 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: None Psychiatric 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: Anxiety, Depression Endocrine/Metabolic 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: None Hematologic 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: None Oncologic (Cancer) 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: None Dermatologic 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: None - Infectious Disease History Infectious Disease 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: None - Past Surgical History Head Surgeries/Procedures: Reports: None GI Surgical 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: Cholecystectomy Female Surgical 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: None Social & Family History - Family History Family Medical History: No Pertinent Family History - Caffeine Use Caffeine Use: Reports: Coffee, Energy Drinks ED ROS ALLERGIC REACTION - Review of Systems Review Of Systems: See Below Constitutional: Reports: No Symptoms HEENT: Reports: No Symptoms Respiratory: Reports: No Symptoms Cardiovascular: Reports: No Symptoms Endocrine: Reports: No Symptoms GI/Abdominal: Reports: No Symptoms : Reports: No Symptoms Musculoskeletal: Reports: No Symptoms Skin: Reports: Urticaria Neurological: Reports: No Symptoms Psychiatric: Reports: No Symptoms Hematologic/Lymphatic: Reports: No Symptoms Immunologic: Reports: No Symptoms ED EXAM GENERAL NO PERIP PULSE - Physical Exam Exam: See Below Exam Limited By: No Limitations General Appearance: Alert, WD/WN Eye Exam: Bilateral Eye: EOMI, PERRL Throat/Mouth: Normal Oropharynx Head: Atraumatic Neck: Normal Inspection Respiratory/Chest: No Respiratory Distress, Lungs Clear, Normal Breath Sounds Cardiovascular: Normal Peripheral Pulses, Regular Rate, Rhythm GI/Abdominal: Normal Bowel Sounds, Soft, Non-Tender Extremities: Normal Inspection Neurological: Alert, Oriented, CN II-XII Intact, Normal Cognition, Normal Gait Course - Vital Signs Last Recorded V/S: Last Vital Signs Temp 100.0 F 07/13/20 23:20 Pulse 81 07/14/20 01:32 Resp 18 07/14/20 01:32 BP 96/55 L 07/14/20 01:32 Pulse Ox 97 07/14/20 01:32 - Orders/Labs/Meds Meds: Medications Discontinued Medications Generic Name Dose Route Start Last Admin Trade Name Sun PRN Reason Stop Dose Admin Diphenhydramine HCl Confirm 07/13/20 23:27 07/13/20 23:32 Benadryl Administered 07/13/20 23:28 Not Given Dose 50 mg .ROUTE .STK-MED ONE Diphenhydramine HCl 50 mg 07/13/20 23:31 07/14/20 01:34 Benadryl PO 07/13/20 23:32 Not Given ONETIME ONE Diphenhydramine HCl 50 mg 07/13/20 23:39 07/13/20 23:40 Benadryl IVPUSH 07/13/20 23:40 50 mg ONETIME ONE Administration Famotidine 20 mg 07/13/20 23:18 07/13/20 23:38 Pepcid IVPUSH 07/13/20 23:19 20 mg ONETIME ONE Administration Sodium Chloride 1,000 mls @ 999 mls/hr 07/13/20 23:37 07/13/20 23:38 Normal Saline IV 07/14/20 00:37 999 mls/hr NOW STA Administration Methylprednisolone Sodium Succinate 125 mg 07/13/20 23:18 07/13/20 23:38 Solu-Medrol IVPUSH 07/13/20 23:19 125 mg ONETIME ONE Administration Ondansetron HCl Confirm 07/13/20 23:27 07/13/20 23:32 Zofran Administered 07/13/20 23:28 Not Given Dose 4 mg .ROUTE .STK-MED ONE Ondansetron HCl 4 mg 07/13/20 23:31 07/13/20 23:39 Zofran IVPUSH 07/13/20 23:32 4 mg ONETIME ONE Administration Departure - Departure Time of Disposition: 03:02 Disposition: Home, Self-Care 01 Condition: Good Clinical Impression: Allergic reaction - Discharge Information *PRESCRIPTION DRUG MONITORING PROGRAM REVIEWED*: Not Applicable *COPY OF PRESCRIPTION DRUG MONITORING REPORT IN PATIENT MARK: Not Applicable Prescriptions: EPINEPHrine [Epipen] 0.3 mg IM ASDIRECTED PRN 1 Days #1 pen PRN Reason: Other predniSONE [Prednisone] 50 mg PO DAILY 5 Days #5 tablet Referrals: PCP,None [Primary Care Provider] - Forms: ED Department Discharge Additional Instructions: The following information is given to patients seen in the emergency department who are being discharged to home. This information is to outline your options for follow-up care. We provide all patients seen in our emergency department with a follow-up referral. The need for follow-up, as well as the timing and circumstances, are variable depending upon the specifics of your emergency department visit. If you don't have a primary care physician on staff, we will provide you with a referral. We always advise you to contact your personal physician following an emergency department visit to inform them of the circumstance of the visit and for follow-up with them and/or the need for any referrals to a consulting specialist. The emergency department will also refer you to a specialist when appropriate. This referral assures that you have the opportunity for follow-up care with a specialist. All of these measure are taken in an effort to provide you with optimal care, which includes your follow-up. Under all circumstances we always encourage you to contact your private phys ician who remains a resource for coordinating your care. When calling for follow-up care, please make the office aware that this follow-up is from your recent emergency room visit. If for any reason you are refused follow-up, please contact the [facility] Emergency Department at and asked to speak to the emergency department charge nurse. Please follow up with your primary care physician. If you do not have a primary care physician, see below: [facility] [address] [place] [address] My [facility] [address] [place] [address] Please follow-up with your primary care physician or follow-up with an firearms model maker if you have access to one. You likely had allergic reaction when unsure of the cause. We will send home with steroids you should take daily for the next 5 days as well as EpiPen that she should only use if you have severe allergic reaction. If you have any other symptoms or complaints please return to the ED. Sepsis Event Note (ED) - Evaluation Sepsis Screening Result: No Definite Risk - Focused Exam Vital Signs: Vital Signs Temp Pulse Resp BP Pulse Ox 07/14/20 01:32 81 18 96/55 L 97 07/14/20 00:32 81 18 94/45 L 100 07/13/20 23:32 78 18 118/64 100 07/13/20 23:25 53 L 71/27 L 95 07/13/20 23:20 100.0 F 120 H 18 120/63 97 - Assessment/Plan Assessment:: Patient is a 25-year-old female who presents today for possible allergic reaction. Patient took Benadryl at home. Patient was given steroids Pepcid here. Patient did have a episode of vomiting and some hypotension was given a liter of fluids. Patient has been stable will be observed for the next 4 hours.
[2020-07-14] MEDS: diphenhydrAMINE 50 MG Cap PO ONE ×2 (00:18→01:34)
[2020-07-14 03:47] VITALS: BP 96/52; PULSE 66
== END 2020-07-14 03:40 | disposition home or self-care (01) ==
LOC: MW.ED 23:14
DX: T78.1XXA Other adverse food reactions, not elsewhere classified, initial encounter (principal); Z79.899 Other long term (current) drug therapy
CPT/HCPCS: 96374; 96375; 99283; J1200; J2405; J2930; J3490; J7030

== ENCOUNTER 2020-10-19 02:13 | Emergency (ER) | payer SELFPAY ==
[2020-10-19 02:44] VITALS: BP 117/74; PULSE 80
--- NOTE | 2020-10-19 02:45 | EDM.PDOC ---
ED HPI GENERAL MEDICAL PROBLEM - General Chief Complaint: General Stated Complaint: LOW BLOOD SUGAR Time Seen by Provider: 10/19/20 02:18 - History of Present Illness INITIAL COMMENTS - FREE TEXT/NARRATIVE: History of present illness: [] The patient felt off the night. She felt a little like she is drunk. She still feels that way. Her blood sugar was 65 at work. She has had 78 and she does not feel much better. It is happened to her before and her blood sugars drop. She has a glucometer because she has had periodic hypoglycemia in the past. Her blood sugar on arrival here is 90. Review of systems: As per history of present illness and below otherwise all systems reviewed and negative. Past medical history: As per history of present illness and as reviewed below otherwise noncontributory. Surgical history: As per history of present illness and as reviewed below otherwise noncontributory. Social history: No reported history of drug or alcohol abuse. She does smoke. She says "too much" Family history: As per history of present illness and as reviewed below otherwise noncontributory. Physical exam: Constitutional - well developed, well-nourished and in no acute distress HEENT - normocephalic, no evidence of trauma - external nose and mouth normal - no mass in neck and no JVD - mucosae moist EYES - full EOM, PERRL, no icterus - no evidence of inflammation, injection, or drainage Respiratory - no respiratory distress, equal bilateral expansion, lungs clear to auscultation and no abnormal lung sounds Cardiovascular - Regular Rhythm with S1 and S2 appreciated and no murmur, gallop or rub. GI - abdomen soft without distension or organomegaly - normal bowel sounds - no guard or rebound Musculoskeletal no gross deformity of long bones or joints - no tenderness, swelling or edema Neurologic - Alert and oriented times four - CN II-XII grossly intact - motor sensory and coordination symmetrically normal Psychiatric - appropriate mood and affect with normal thought content Hematologic - No petechiae or purpura - mucosa appropriate color and sclera not pale - normal nail bed color and refill Integument - no rash or evidence of trauma - normal turgor Diagnostics: [] Therapeutics: [] Impression: [] Plan: [] Definitive disposition and diagnosis as appropriate pending reevaluation and review of above. - Related Data Allergies Allergy/AdvReac Type Severity Reaction Status Date / Time No Known Allergies Allergy Verified 10/19/20 02:40 Home Meds: Home Meds Citalopram Hydrobromide [Celexa] 40 mg PO DAILY 09/21/18 [History] EPINEPHrine [Epipen] 0.3 mg IM ASDIRECTED PRN 1 Days #1 pen 07/14/20 [Rx] predniSONE [Prednisone] 50 mg PO DAILY 5 Days #5 tablet 07/14/20 [Rx] Past Medical History - Past Health History Medical/Surgical History: Denies Medical/Surgical History HEENT 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: None Cardiovascular 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: None Respiratory 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: None Gastrointestinal 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: None Genitourinary 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: Pyelonephritis 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: Musculoskeletal 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: None Neurological 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: None Psychiatric 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: Anxiety, Depression Endocrine/Metabolic 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: None Hematologic 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: None Oncologic (Cancer) 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: None Dermatologic 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: None - Infectious Disease History Infectious Disease 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: None - Past Surgical History Head Surgeries/Procedures: Reports: None GI Surgical 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: Cholecystectomy Female Surgical 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: None Social & Family History - Family History Family Medical History: No Pertinent Family History - Caffeine Use Caffeine Use: Reports: Coffee, Energy Drinks ED ROS GENERAL - Review of Systems Review Of Systems: Comprehensive ROS is negative, except as noted in HPI. ED EXAM, GENERAL - Physical Exam Exam: See Below Free Text/Narrative:: My physical exam is in the HPI Course - Vital Signs Last Recorded V/S: Last Vital Signs Temp 36.1 C 10/19/20 02:41 Pulse 80 10/19/20 02:41 Resp 18 10/19/20 02:41 BP 117/74 10/19/20 02:41 Pulse Ox 97 10/19/20 02:41 - Orders/Labs/Meds Labs: Laboratory Tests 10/19/20 10/19/20 10/19/20 Range/Units 02:28 02:30 02:30 WBC (4.0-11.0) K/uL RBC (4.30-5.90) M/uL Hgb (12.0-16.0) g/dL Hct (36.0-46.0) % MCV (80.0-98.0) fL MCH (27.0-32.0) pg MCHC (31.0-37.0) g/dL RDW Std Deviation (28.0-62.0) fl RDW Coeff of Griselda (11.0-15.0) % Plt Count (150-400) K/uL MPV (7.40-12.00) fL Neut % (Auto) (48.0-80.0) % Lymph % (Auto) (16.0-40.0) % [place] % (Auto) (0.0-15.0) % Eos % (Auto) (0.0-7.0) % Baso % (Auto) (0.0-1.5) % Neut # (Auto) (1.4-5.7) K/uL Lymph # (Auto) (0.6-2.4) K/uL Dixie # (Auto) (0.0-0.8) K/uL Eos # (Auto) (0.0-0.7) K/uL Baso # (Auto) (0.0-0.1) K/uL Nucleated RBC % /100WBC Nucleated RBCs # K/uL Sodium (136-145) mmol/L Potassium (3.5-5.1) mmol/L Chloride (98-107) mmol/L Carbon Dioxide (21.0-32.0) mmol/L BUN (7.0-18.0) mg/dL Creatinine (0.6-1.0) mg/dL Est Cr Clr Drug Dosing Estimated GFR (MDRD) ml/min Glucose (74-106) mg/dL POC Glucose 90 (70-99) mg/dL Calcium (8.5-10.1) mg/dL Total Bilirubin (0.2-1.0) mg/dL AST (15-37) IU/L ALT (14-63) IU/L Alkaline Phosphatase (46-116) U/L Total Protein (6.4-8.2) g/dL Albumin (3.4-5.0) g/dL Globulin (2.6-4.0) g/dL Albumin/Globulin Ratio (0.9-1.6) Urine Color YELLOW Urine Appearance CLEAR Urine pH 8.0 (5.0-8.0) Ur Specific [place] 1.015 (1.001-1.035) Urine Protein NEGATIVE (NEGATIVE) mg/dL Urine Glucose (UA) NEGATIVE (NEGATIVE) mg/dL Urine Ketones NEGATIVE (NEGATIVE) mg/dL Urine Occult Blood NEGATIVE (NEGATIVE) Urine Nitrite NEGATIVE (NEGATIVE) Urine Bilirubin NEGATIVE (NEGATIVE) Urine Urobilinogen 0.2 (<2.0) EU/dL Ur Leukocyte Esterase SMALL H (NEGATIVE) Urine RBC NONE SEEN (0-2/HPF) Urine WBC 0-2 (0-5/HPF) Ur Epithelial Cells OCCASIONAL (NONE-FEW) Urine Bacteria FEW (NEGATIVE) Urine Mucus LIGHT (NONE-MOD) Urine HCG, Qual NEGATIVE (NEGATIVE) 10/19/20 10/19/20 Range/Units 02:49 02:49 WBC 7.73 (4.0-11.0) K/uL RBC 4.37 (4.30-5.90) M/uL Hgb 13.3 (12.0-16.0) g/dL Hct 39.5 (36.0-46.0) % MCV 90.4 (80.0-98.0) fL MCH 30.4 (27.0-32.0) pg MCHC 33.7 (31.0-37.0) g/dL RDW Std Deviation 48.0 (28.0-62.0) fl RDW Coeff of Griselda 15 (11.0-15.0) % Plt Count 194 (150-400) K/uL MPV 10.10 (7.40-12.00) fL Neut % (Auto) 49.0 (48.0-80.0) % Lymph % (Auto) 37.8 (16.0-40.0) % Dixie % (Auto) 8.5 (0.0-15.0) % Eos % (Auto) 4.1 (0.0-7.0) % Baso % (Auto) 0.6 (0.0-1.5) % Neut # (Auto) 3.8 (1.4-5.7) K/uL Lymph # (Auto) 2.9 H (0.6-2.4) K/uL Dixie # (Auto) 0.7 (0.0-0.8) K/uL Eos # (Auto) 0.3 (0.0-0.7) K/uL Baso # (Auto) 0.1 (0.0-0.1) K/uL Nucleated RBC % 0.0 /100WBC Nucleated RBCs # 0 K/uL Sodium 141 (136-145) mmol/L Potassium 4.1 (3.5-5.1) mmol/L Chloride 105 (98-107) mmol/L Carbon Dioxide 28.3 (21.0-32.0) mmol/L BUN 12 (7.0-18.0) mg/dL Creatinine 0.9 (0.6-1.0) mg/dL Est Cr Clr Drug Dosing TNP Estimated GFR (MDRD) > 60.0 ml/min Glucose 98 (74-106) mg/dL POC Glucose (70-99) mg/dL Calcium 8.3 L (8.5-10.1) mg/dL Total Bilirubin 0.2 (0.2-1.0) mg/dL AST 12 L (15-37) IU/L ALT 26 (14-63) IU/L Alkaline Phosphatase 71 (46-116) U/L Total Protein 7.2 (6.4-8.2) g/dL Albumin 3.7 (3.4-5.0) g/dL Globulin 3.5 (2.6-4.0) g/dL Albumin/Globulin Ratio 1.1 (0.9-1.6) Urine Color Urine Appearance Urine pH (5.0-8.0) Ur Specific [place] (1.001-1.035) Urine Protein (NEGATIVE) mg/dL Urine Glucose (UA) (NEGATIVE) mg/dL Urine Ketones (NEGATIVE) mg/dL Urine Occult Blood (NEGATIVE) Urine Nitrite (NEGATIVE) Urine Bilirubin (NEGATIVE) Urine Urobilinogen (<2.0) EU/dL Ur Leukocyte Esterase (NEGATIVE) Urine RBC (0-2/HPF) Urine WBC (0-5/HPF) Ur Epithelial Cells (NONE-FEW) Urine Bacteria (NEGATIVE) Urine Mucus (NONE-MOD) Urine HCG, Qual (NEGATIVE) Departure - Departure Time of Disposition: 03:21 Disposition: Home, Self-Care 01 Condition: Good Clinical Impression: Hypoglycemia - Discharge Information Referrals: Trell Harper MD [Primary Care Provider] - Forms: ED Department Discharge Additional Instructions: Carry candy or something to rescue her self if you sugar drops. Follow-up with PMD. Cinthya Chawla [facility] - [facility] [address] [place] [id number] [facility] [address] [place] [id number] The following information is given to patients seen in the emergency department who are being discharged to home. This information is to outline your options for follow-up care. We provide all patients seen in our emergency department with a follow-up referral. The need for follow-up, as well as the timing and circumstances, are variable depending upon the specifics of your emergency department visit. If you don't have a primary care physician on staff, we will provide you with a referral. We always advise you to contact your personal physician following an emergency department visit to inform them of the circumstance of the visit and for follow-up with them and/or the need for any referrals to a consulting specialist. The emergency department will also refer you to a specialist when appropriate. This referral assures that you have the opportunity for follow-up care with a specialist. All of these measure are taken in an effort to provide you with optimal care, which includes your follow-up. Under all circumstances we always encourage you to contact your private physician who remains a resource for coordinating your care. When calling for follow-up care, please make the office aware that this follow-up is from your recent emergency room visit. If for any reason you are refused follow-up, please contact the [facility] Emergency Department at and asked to speak to the emergency department charge nurse. Sepsis Event Note (ED) - Focused Exam Vital Signs: Vital Signs Temp Pulse Resp BP Pulse Ox 10/19/20 02:41 36.1 C 80 18 117/74 97
[2020-10-19 03:19] LABS: BLOOD UREA NITROGEN,BUN 12 mg/dL (7.0-18.0); CARBON DIOXIDE,CO2 28.3 mmol/L (21.0-32.0); CHLORIDE,CL 105 mmol/L (98-107); GLUCOSE RANDOM 98 mg/dL (74-106); POTASSIUM,K 4.1 mmol/L (3.5-5.1); SODIUM,NA 141 mmol/L (136-145)
== END 2020-10-19 03:45 | disposition home or self-care (01) ==
LOC: MW.ED 02:13
DX: E16.2 Hypoglycemia, unspecified (principal)
CPT/HCPCS: 36415; 80053; 81001; 81025; 82947; 85025; 99283; 99284

== ENCOUNTER 2021-06-23 19:07 | Emergency (ER) | payer BC ==
[2021-06-23] MEDS ORDERED: Ondansetron 4 MG Tab.DIS PO ONE (19:47)
[2021-06-23] MEDS ORDERED: Ketorolac 60 MG/2 ML SDV IM ONE ×2 (19:55→19:57)
[2021-06-23 20:31] LABS: CORONAVIRUS COVID-19 NAA POSITIVE (NEGATIVE); INFLUENZA A NAA NEGATIVE (NEGATIVE); INFLUENZA B NAA NEGATIVE (NEGATIVE)
[2021-06-23 21:21] VITALS: BP 103/55; PULSE 80
== END 2021-06-23 21:21 | disposition home or self-care (01) ==
LOC: MW.ED 19:07
DX: U07.1 COVID-19 (principal)
CPT/HCPCS: 0240U; 71045; 87651; 96372; 99283; A9270; J1885

== ENCOUNTER 2021-12-29 00:10 | Emergency (ER) | payer BC ==
[2021-12-29] MEDS ORDERED: Ketorolac 30 MG/ML SDV IVPUSH ONE (00:28)
[2021-12-29] MEDS ORDERED: Sodium Chloride 0.9% 1,000 ML IV ONE (00:28)
[2021-12-29 01:26] LABS: CARBON DIOXIDE,CO2 22.5 mmol/L (21.0-32.0); POTASSIUM,K 3.6 mmol/L (3.5-5.1)
[2021-12-29 01:33] VITALS: BP 128/75; PULSE 84
== END 2021-12-29 01:37 | disposition home or self-care (01) ==
LOC: MW.ED 00:10
DX: R10.2 Pelvic and perineal pain (principal)
CPT/HCPCS: 36415; 80053; 81001; 81025; 85025; 96374; 99284; J1885; J7030; 99283

== ENCOUNTER 2023-06-14 00:06 | Emergency (ER) | payer BC ==
[2023-06-14 00:32] LABS: APPEARANCE,URINE CLEAR; BILIRUBIN,URINE NEGATIVE (NEGATIVE); COLOR,URINE YELLOW; GLUCOSE,URINE NEGATIVE (NEGATIVE); KETONES,URINE NEGATIVE (NEGATIVE); LEUKOCYTE ESTERASE,URINE NEGATIVE (NEGATIVE); NITRITE,URINE NEGATIVE (NEGATIVE); OCCULT BLOOD,URINE NEGATIVE (NEGATIVE); PH,URINE 6.5 (5.0-8.0); PROTEIN,URINE NEGATIVE (NEGATIVE); UROBILINOGEN,URINE 0.2 EU/dL (<2.0)
[2023-06-14] MEDS ORDERED: Sodium Chloride 0.9% 10 ML Syringe FLUSH PRN (00:42)
[2023-06-14] MEDS ORDERED: Sodium Chloride 0.9% 1,000 ML IV ONE (00:42)
[2023-06-14] MEDS ORDERED: Sodium Chloride 0.9% 2.5 ML Syringe FLUSH PRN (00:42)
[2023-06-14 00:55] LABS: BASOPHILS ABSOLUTE AUTO 0.09 K/uL (0.00-0.20); BASOPHILS PERCENT AUTO 0.7 % (0.0-1.0); EOSINOPHILS ABSOLUTE AUTO 0.26 K/uL (0.00-0.45); HEMATOCRIT 36.9 % (37.0-47.0); HEMOGLOBIN 12.9 g/dL (12.0-16.0); IMMATURE GRAN ABSOLUTE AUTO 0.06 K/uL (0.00-0.05); IMMATURE GRAN PERCENT AUTO 0.5 % (0.0-0.4); LYMPHOCYTES PERCENT AUTO 23.8 % (24.0-44.0); MEAN CORPUSCULAR HEMOGLOBIN 30.9 pg (28.0-32.0); MEAN CORPUSCULAR VOLUME 88.3 fL (83.0-99.0); MEAN PLATELET VOLUME 9.7 fL (9.4-12.3); MONOCYTES PERCENT AUTO 6.9 % (0.0-8.0); NEUTROPHILS ABSOLUTE AUTO 8.64 K/uL (1.80-7.70); NEUTROPHILS PERCENT AUTO 66.1 % (41.0-71.0); PLATELET COUNT,PLT 184 K/uL (150-400); RED BLOOD CELL COUNT 4.18 M/uL (4.10-5.30); WHITE BLOOD CELL COUNT,WBC 13.05 K/uL (3.9-11.3)
[2023-06-14 01:27] LABS: A/G RATIO 1.1 (0.9-1.6); ALBUMIN 3.9 g/dL (3.4-5.0); BILIRUBIN TOTAL 0.3 mg/dL (0.2-1.0); CALCIUM 8.4 mg/dL (8.5-10.1); CARBON DIOXIDE,CO2 24.4 mmol/L (21.0-32.0); CREATININE 0.6 mg/dL (0.6-1.0); EST CRCL DRUG DOSING (CG) 114.44 mL/min; POTASSIUM,K 3.6 mmol/L (3.5-5.1); PROTEIN TOTAL,TP 7.3 g/dL (6.4-8.2)
[2023-06-14 01:52] VITALS: BP 127/67; PULSE 92
== END 2023-06-14 01:50 | disposition home or self-care (01) ==
LOC: MW.ED 00:06
DX: O99.281 Endocrine, nutritional and metabolic diseases complicating pregnancy, first trimester (principal); E86.0 Dehydration; O26.831 Pregnancy related renal disease, first trimester; R34 Anuria and oliguria; Z3A.01 Less than 8 weeks gestation of pregnancy
CPT/HCPCS: 36415; 80053; 81003; 81025; 85025; 96360; 99283; J3490; J7030

== ENCOUNTER 2024-04-12 06:31 | Day surgery (SDC) | payer BC ==
[2024-04-12] MEDS ORDERED: Rocuronium Bromide 50 MG/5 ML Syringe IVPUSH ONE (06:32)
[2024-04-12 07:00] LABS: BASOPHILS ABSOLUTE AUTO 0.07 K/uL (0.00-0.20); EOSINOPHILS ABSOLUTE AUTO 0.34 K/uL (0.00-0.45); EOSINOPHILS PERCENT AUTO 4.9 % (0.0-6.0); HEMATOCRIT 40.2 % (37.0-47.0); HEMOGLOBIN 13.6 g/dL (12.0-16.0); IMMATURE GRAN ABSOLUTE AUTO 0.02 K/uL (0.00-0.05); IMMATURE GRAN PERCENT AUTO 0.3 % (0.0-0.4); LYMPHOCYTES ABSOLUTE AUTO 2.15 K/uL (1.00-4.80); LYMPHOCYTES PERCENT AUTO 30.7 % (24.0-44.0); MEAN CORPUSCULAR HEMOGLOBIN 29.8 pg (28.0-32.0); MEAN CORPUSCULAR HGB CONC 33.8 g/dL (32.0-36.0); MEAN PLATELET VOLUME 9.8 fL (9.4-12.3); MONOCYTES ABSOLUTE AUTO 0.46 K/uL (0.00-0.80); MONOCYTES PERCENT AUTO 6.6 % (0.0-8.0); NEUTROPHILS ABSOLUTE AUTO 3.97 K/uL (1.80-7.70); NEUTROPHILS PERCENT AUTO 56.5 % (41.0-71.0); PLATELET COUNT,PLT 186 K/uL (150-400); RED BLOOD CELL COUNT 4.57 M/uL (4.10-5.30); WHITE BLOOD CELL COUNT,WBC 7.01 K/uL (3.9-11.3)
[2024-04-12] MEDS: Lactated Ringers 1,000 ML IV SCH (07:14)
[2024-04-12] MEDS ORDERED: Naloxone 0.4 MG/ML SDV IVPUSH PRN (07:32)
[2024-04-12] MEDS ORDERED: fentaNYL 50 MCG/ML SDV IVPUSH PRN (07:32)
[2024-04-12] MEDS ORDERED: HYDROmorphone 1 MG/ML Syringe IVPUSH PRN (07:32)
[2024-04-12] MEDS ORDERED: Morphine 2 MG/ML SYRINGE IVPUSH PRN (07:32)
[2024-04-12] MEDS ORDERED: Albuterol 0.083% 2.5 MG/3 ML Neb Soln NEB PRN (07:32)
[2024-04-12] MEDS ORDERED: Phenylephrine HCl In 0.9% NaCl 1 MG/10 ML Syringe IVPUSH PRN (07:32)
[2024-04-12] MEDS ORDERED: Metoclopramide 10 MG/2 ML SDV IVPUSH PRN (07:32)
[2024-04-12] MEDS ORDERED: Lidocaine 2% 11 ML Jelly Filled Syringe ONE (07:32)
[2024-04-12] MEDS ORDERED: Ondansetron 4 MG/2 ML SDV IVPUSH PRN (07:32)
[2024-04-12] MEDS ORDERED: propofoL 50 ML ONE (07:34)
[2024-04-12] MEDS ORDERED: fentaNYL 250 MCG/5 ML SDV ONE (07:36)
[2024-04-12] MEDS ORDERED: Ketorolac 30 MG/ML SDV ONE (08:15)
[2024-04-12] MEDS ORDERED: Dexamethasone 4 MG/ML 5 ML MDV ONE (08:15)
[2024-04-12] MEDS ORDERED: Ondansetron 4 MG/2 ML SDV ONE (08:15)
[2024-04-12] MEDS ORDERED: Sugammadex Sodium 200 MG/2 ML VIAL IV ONE ×2 (08:18→08:41)
[2024-04-12 11:14] VITALS: BP 95/52; PULSE 68
== END 2024-04-12 09:38 | disposition home or self-care (01) ==
LOC: MW.SDS 06:31
PROVIDERS: ATTEND Obstetrics & Gynecology
DX: O02.1 Missed abortion (principal)
CPT/HCPCS: 36415; 59820; 85025; 86850; 86900; 86901; A9270; J0131; J1100; J1885; J2405; J2704; J3010; J3490; J7120; 01965

== ENCOUNTER 2025-03-25 13:28 | Inpatient (IN) | payer BC ==
[2025-03-25 14:50] LABS: GLUCOSE,URINE NEGATIVE (NEGATIVE); OCCULT BLOOD,URINE NEGATIVE (NEGATIVE)
[2025-03-25 14:51] LABS: MEAN PLATELET VOLUME 11.4 fL (9.4-12.3); NRBC ABSOLUTE 0.00 K/uL (0.00-0.02); NRBC PERCENT 0.0 /100WBC (0.0-0.2); PLATELET COUNT,PLT 174 K/uL (150-400); RED BLOOD CELL COUNT 3.97 M/uL (4.10-5.30); WHITE BLOOD CELL COUNT,WBC 11.19 K/uL (3.9-11.3)
[2025-03-25 14:52] LABS: APPEARANCE,URINE HAZY
[2025-03-25 14:57] LABS: SQUAMOUS EPITHELIAL CELLS,UR FEW
[2025-03-25 15:09] LABS: CREATININE,URINE RAND 219.3 mg/dL; PROTEIN CREATININE RATIO,URINE 0.1; PROTEIN,URINE RANDOM 15.4 mg/dL (<11.9)
[2025-03-25 15:13] LABS: A/G RATIO 0.7 (0.9-1.6); ALANINE AMINOTRANSFERASE,ALT 126.0 IU/L (14-63); ASPARTATE AMNIOTRANSFERASE,AST 53.0 IU/L (15-37); BILIRUBIN TOTAL 0.3 mg/dL (0.2-1.0); BLOOD UREA NITROGEN,BUN 10.0 mg/dL (7.0-18.0); CARBON DIOXIDE,CO2 20.9 mmol/L (21.0-32.0); CHLORIDE,CL 106.0 mmol/L (98-107); CREATININE 0.6 mg/dL (0.6-1.0); EST CRCL DRUG DOSING (CG) 112.38 mL/min; GLUCOSE RANDOM 113.0 mg/dL (74-106); POTASSIUM,K 3.5 mmol/L (3.5-5.1); PROTEIN TOTAL,TP 6.4 g/dL (6.4-8.2); SODIUM,NA 140.0 mmol/L (136-145)
[2025-03-25 15:15] LABS: ESTIMATED GFR 123.0 mL/min (>60)
[2025-03-25] MEDS ORDERED: Carboprost Tromethamine 250 MCG/1 mL Vial IM PRN (16:08)
[2025-03-25] MEDS ORDERED: Water For Irrigation,Sterile 1,000 ML Container IRR PRN (16:08)
[2025-03-25] MEDS ORDERED: Sodium Chloride 0.9% 10 ML Syringe FLUSH PRN (16:08)
[2025-03-25] MEDS ORDERED: Terbutaline 1 MG/ML SDV SUBCUT PRN (16:08)
[2025-03-25] MEDS: Misoprostol 25 MCG (1/4 of 100 MCG) Tab VAG PRN (17:47)
[2025-03-25] MEDS ORDERED: ePHEDrine 50 MG/ML SDV IVPUSH PRN (18:32)
[2025-03-25] MEDS ORDERED: dexmedeTOMIDine HCl 200 MCG/2 ML SDV EPIDUR SCH (18:45)
[2025-03-25] MEDS: Lactated Ringers 1,000 ML IV SCH (21:43)
[2025-03-26] MEDS: Sodium Chloride 0.9% 2.5 ML Syringe FLUSH PRN (07:20)
[2025-03-26] MEDS: Butorphanol 1 MG/ML SDV IVPUSH PRN (07:22)
[2025-03-26] MEDS: Oxytocin/0.9 % Sodium Chloride 30 UNIT/500 ML BAG IV SCH (10:36)
[2025-03-26 18:54] LABS: A/G RATIO 0.8 (0.9-1.6); ALANINE AMINOTRANSFERASE,ALT 121.0 IU/L (14-63); ASPARTATE AMNIOTRANSFERASE,AST 46.0 IU/L (15-37); BILIRUBIN TOTAL 0.4 mg/dL (0.2-1.0); BLOOD UREA NITROGEN,BUN 8.0 mg/dL (7.0-18.0); CARBON DIOXIDE,CO2 23.9 mmol/L (21.0-32.0); CHLORIDE,CL 104.0 mmol/L (98-107); CREATININE 0.6 mg/dL (0.6-1.0); EST CRCL DRUG DOSING (CG) 112.38 mL/min; ESTIMATED GFR 123.0 mL/min (>60); GLUCOSE RANDOM 100.0 mg/dL (74-106); POTASSIUM,K 3.8 mmol/L (3.5-5.1); PROTEIN TOTAL,TP 6.5 g/dL (6.4-8.2); SODIUM,NA 138.0 mmol/L (136-145)
[2025-03-26 19:03] LABS: CREATININE,URINE RAND 117.8 mg/dL; PROTEIN CREATININE RATIO,URINE 0.1; PROTEIN,URINE RANDOM 10.0 mg/dL (<11.9)
[2025-03-27 08:40] LABS: MEAN PLATELET VOLUME 11.4 fL (9.4-12.3); NRBC ABSOLUTE 0.00 K/uL (0.00-0.02); NRBC PERCENT 0.0 /100WBC (0.0-0.2); PLATELET COUNT,PLT 175 K/uL (150-400); RED BLOOD CELL COUNT 4.35 M/uL (4.10-5.30); WHITE BLOOD CELL COUNT,WBC 10.49 K/uL (3.9-11.3)
[2025-03-27 09:12] LABS: A/G RATIO 0.7 (0.9-1.6); ALANINE AMINOTRANSFERASE,ALT 117.0 IU/L (14-63); ASPARTATE AMNIOTRANSFERASE,AST 42.0 IU/L (15-37); BILIRUBIN TOTAL 0.3 mg/dL (0.2-1.0); BLOOD UREA NITROGEN,BUN 7.0 mg/dL (7.0-18.0); CARBON DIOXIDE,CO2 24.7 mmol/L (21.0-32.0); CHLORIDE,CL 106.0 mmol/L (98-107); CREATININE 0.6 mg/dL (0.6-1.0); EST CRCL DRUG DOSING (CG) 112.38 mL/min; GLUCOSE RANDOM 82.0 mg/dL (74-106); POTASSIUM,K 3.9 mmol/L (3.5-5.1); PROTEIN TOTAL,TP 6.3 g/dL (6.4-8.2); SODIUM,NA 139.0 mmol/L (136-145)
[2025-03-27 09:13] LABS: ESTIMATED GFR 123.0 mL/min (>60)
[2025-03-27] MEDS: Ropivacaine HCl/PF 400 MG in Premix Bag 1 BAG EPIDUR SCH (16:35)
[2025-03-27] MEDS: Ondansetron 4 MG/2 ML SDV IVPUSH PRN (19:28)
[2025-03-27] MEDS ORDERED: Lanolin 100% Cream 7 GM Tube TOP PRN (22:45)
[2025-03-27 22:59] LABS: PH,UMBILICAL ARTERIAL 7.45 (7.18-7.38); PH,UMBILICAL VENOUS 7.34 (7.25-7.45)
[2025-03-27] MEDS: Oxytocin/0.9 % Sodium Chloride 30 UNIT/500 ML BAG IV SCH (23:25)
[2025-03-28] MEDS: Benzocaine/Menthol 20%-0.5% Spray 78 GM Cannister TOP PRN (00:54)
[2025-03-28] MEDS: Witch Hazel Medicated Pads 40/Jar TOP PRN (00:55)
[2025-03-28 05:49] LABS: BASOPHILS ABSOLUTE AUTO 0.08 K/uL (0.00-0.20); BASOPHILS PERCENT AUTO 0.6 % (0.0-1.0); EOSINOPHILS ABSOLUTE AUTO 0.06 K/uL (0.00-0.45); EOSINOPHILS PERCENT AUTO 0.4 % (0.0-6.0); IMMATURE GRAN ABSOLUTE AUTO 0.07 K/uL (0.00-0.05); IMMATURE GRAN PERCENT AUTO 0.5 % (0.0-0.4); LYMPHOCYTES ABSOLUTE AUTO 1.54 K/uL (1.00-4.80); LYMPHOCYTES PERCENT AUTO 11.5 % (24.0-44.0); MEAN PLATELET VOLUME 11.1 fL (9.4-12.3); MONOCYTES ABSOLUTE AUTO 1.06 K/uL (0.00-0.80); MONOCYTES PERCENT AUTO 7.9 % (0.0-8.0); NEUTROPHILS ABSOLUTE AUTO 10.57 K/uL (1.80-7.70); NEUTROPHILS PERCENT AUTO 79.1 % (41.0-71.0); NRBC ABSOLUTE 0.00 K/uL (0.00-0.02); NRBC PERCENT 0.0 /100WBC (0.0-0.2); PLATELET COUNT,PLT 134 K/uL (150-400); RED BLOOD CELL COUNT 3.50 M/uL (4.10-5.30); WHITE BLOOD CELL COUNT,WBC 13.38 K/uL (3.9-11.3)
[2025-03-29 05:51] LABS: BASOPHILS ABSOLUTE AUTO 0.04 K/uL (0.00-0.20); BASOPHILS PERCENT AUTO 0.5 % (0.0-1.0); EOSINOPHILS ABSOLUTE AUTO 0.18 K/uL (0.00-0.45); EOSINOPHILS PERCENT AUTO 2.1 % (0.0-6.0); IMMATURE GRAN ABSOLUTE AUTO 0.07 K/uL (0.00-0.05); IMMATURE GRAN PERCENT AUTO 0.8 % (0.0-0.4); LYMPHOCYTES ABSOLUTE AUTO 1.75 K/uL (1.00-4.80); LYMPHOCYTES PERCENT AUTO 20.8 % (24.0-44.0); MEAN PLATELET VOLUME 11.4 fL (9.4-12.3); MONOCYTES ABSOLUTE AUTO 0.72 K/uL (0.00-0.80); MONOCYTES PERCENT AUTO 8.6 % (0.0-8.0); NEUTROPHILS ABSOLUTE AUTO 5.64 K/uL (1.80-7.70); NEUTROPHILS PERCENT AUTO 67.2 % (41.0-71.0); NRBC ABSOLUTE 0.00 K/uL (0.00-0.02); NRBC PERCENT 0.0 /100WBC (0.0-0.2); PLATELET COUNT,PLT 144 K/uL (150-400); RED BLOOD CELL COUNT 3.29 M/uL (4.10-5.30); WHITE BLOOD CELL COUNT,WBC 8.40 K/uL (3.9-11.3)
[2025-03-29 07:03] LABS: A/G RATIO 0.7 (0.9-1.6); ALANINE AMINOTRANSFERASE,ALT 68.0 IU/L (14-63); ASPARTATE AMNIOTRANSFERASE,AST 22.0 IU/L (15-37); BILIRUBIN TOTAL 0.1 mg/dL (0.2-1.0); BLOOD UREA NITROGEN,BUN 7.0 mg/dL (7.0-18.0); CARBON DIOXIDE,CO2 26.5 mmol/L (21.0-32.0); CHLORIDE,CL 109.0 mmol/L (98-107); CREATININE 0.6 mg/dL (0.6-1.0); EST CRCL DRUG DOSING (CG) 112.38 mL/min; GLUCOSE RANDOM 89.0 mg/dL (74-106); POTASSIUM,K 3.5 mmol/L (3.5-5.1); PROTEIN TOTAL,TP 5.1 g/dL (6.4-8.2); SODIUM,NA 143.0 mmol/L (136-145)
[2025-03-29 07:09] LABS: ESTIMATED GFR 123.0 mL/min (>60)
[2025-03-29 11:55] VITALS: BP 143/65; PULSE 84
== END 2025-03-29 14:03 | disposition home or self-care (01) | DRG 560 ==
LOC: MW.OBCHECK 13:28 → MW.OB 16:08 → OBSVTOIN 03-27 22:10 → MW.OB 03-28 00:45
PROVIDERS: ADMIT Obstetrics & Gynecology Gynecology; ATTEND Obstetrics & Gynecology
PROC: 10E0XZZ Delivery of Products of Conception, External Approach (ICD-10-PCS; principal; 2025-03-27)
PROC: 3E0R3BZ Introduction of Anesthetic Agent into Spinal Canal, Percutaneous Approach (ICD-10-PCS; 2025-03-27)
PROC: 10907ZC Drainage of Amniotic Fluid, Therapeutic from Products of Conception, Via Natural or Artificial Opening (ICD-10-PCS; 2025-03-27)
PROC: 3E033VJ Introduction of Other Hormone into Peripheral Vein, Percutaneous Approach (ICD-10-PCS; 2025-03-27)
PROC: 3E0DXGC Introduction of Other Therapeutic Substance into Mouth and Pharynx, External Approach (ICD-10-PCS; 2025-03-27)
PROC: 0U7C7DJ Dilation of Cervix with Intraluminal Device, Temporary, Via Natural or Artificial Opening (ICD-10-PCS; 2025-03-27)
DX: O14.23 HELLP syndrome (HELLP), third trimester (principal); O99.12 Other diseases of the blood and blood-forming organs and certain disorders involving the immune mechanism complicating childbirth; O99.214 Obesity complicating childbirth; Z3A.37 37 weeks gestation of pregnancy; Z37.0 Single live birth; Z90.49 Acquired absence of other specified parts of digestive tract; Z87.891 Personal history of nicotine dependence; Z79.899 Other long term (current) drug therapy; R79.89 Other specified abnormal findings of blood chemistry; G47.00 Insomnia, unspecified; O99.892 Other specified diseases and conditions complicating childbirth; D69.6 Thrombocytopenia, unspecified
CPT/HCPCS: 01967; 36415; 51702; 59025; 59200; 59409; 76815; 76815-26; 80053; 81001; 82570; 82803; 84156; 85025; 85027; 86592; 86850; 86900; 86901; 87086; A9270-GY; J0595; J2371; J2405; J2590; J2795; J7120